=== PATIENT | male | born 1990 | race African-American/Black ===

== ENCOUNTER 2016-08-18 06:28 | Emergency (ER) | payer SELFPAY ==
[2016-08-18] MEDS ORDERED: HYDROmorphone 1 MG INJECTION IV ONE (06:34)
[2016-08-18] MEDS ORDERED: NS 1,000 ML IV ONE (06:34)
[2016-08-18] MEDS ORDERED: ONDANSETRON HCL 4 MG/2 ML VIAL IV ONE (06:34)
--- NOTE | 2016-08-18 06:37 | EDPRACDOC ---
- History of Present Illness HPI: FELL LAST NIGHT; WALKING DOG AND LOST BALANCE; FOOSH. PAIN TO RIGHT FOREARM , WRIST, AND HAND Location: Reports: Dorsal Mechanism: Reports: FOOSH Circumstances: Reports: Fall Tetanus Up To Date?: Yes Associated Signs and Symptoms: Reports: None <Jerardo Jones - Last Filed: 08/18/16 06:34> <AntonJuancarlos - Last Filed: 08/18/16 08:23> - General Information Stated Complaint: FALL: RT WRIST INJURY Time Seen by Provider: 08/18/16 06:34 Home Medications: Home Medications Oxycodone HCl/Acetaminophen [Percocet 5-325 mg Tablet] 1 each PO Q4 #20 tablet 08/18/16 Allergies/Adverse Reactions: Allergies Allergy/AdvReac Type Severity Reaction Status Date / Time pantoprazole sodium AdvReac See Verified 08/18/16 06:42 [From Protonix] Comments ED Past Medical History - History Reviewed Yes Nurses notes reviewed and agree except as marked - Patient Medical History Psychological History: Denies: Depression, Substance Use Disorder 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 Denies: Stroke, Cardiac Disorders - Social Medical History Smoking Status: Heavy tobacco smoker (5 or more cigarettes/day or daily pipe/ cigar) Social History: Denies: Substance Use Disorder <Jerardo Jones - Last Filed: 08/18/16 06:34> EDM Review of Systems - Review of Systems ROS Negative Except as Marked: Yes All systems reviewed and were negative except as marked <Jerardo Jones - Last Filed: 08/18/16 06:34> - Physical Exam Constitutional: No apparent distress Oriented to: Time, Person, Place Last recorded Vital Signs: Oxygen Pulse Oxygen Saturation O2 Device Oxygen Flow Rate Fraction of Inspired Oxygen ( FIO2) <Jerardo Jones - Last Filed: 08/18/16 06:34> - Physical Exam Last recorded Vital Signs: Last Vital Signs Temp 98.6 F 08/18/16 06:35 Pulse 51 L 08/18/16 07:52 Resp 16 08/18/16 07:52 BP 117/71 08/18/16 07:52 Pulse Ox 96 08/18/16 07:52 Oxygen Pulse Oxygen Saturation 96 O2 Device Room Air Oxygen Flow Rate Fraction of Inspired Oxygen ( FIO2) <AntonJuancarlos - Last Filed: 08/18/16 08:23> ED Wrist Problem Exam Wrist Symptoms: Swelling, Limited ROM, Moderate Tenderness Hand Symptoms: Swelling Forearm Symptoms: Swelling, Mild Tenderness Distal Function/Circulation: Normal, Capillary Refill. negative: Motor Deficit , Pulse Deficit, Sensory Deficit <Jerardo Jones - Last Filed: 08/18/16 06:34> <Jerardo Jones - Last Filed: 08/18/16 06:34> Decision Time to Discharge: 08:21 - Departure Yes I personally saw and evaluated the patient. 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
[2016-08-18 06:42] VITALS: TEMP 98.6; BMI 28.5
--- NOTE | 2016-08-18 07:55 | DIRPT ---
CLINICAL DATA: Right forearm, wrist and hand pain after falling on an outstretched arm while walking his dog last night and losing his balance. EXAM: RIGHT FOREARM - 2 VIEW COMPARISON: Wrist radiographs obtained at the same time. Right elbow radiographs dated 04/15/2009. FINDINGS: Again demonstrated are extensive degenerative changes involving the right elbow. There is a fracture through the radial aspect of the radial head involving the radio capitellar joint. There is a suggestion of corticated margins with joint space narrowing and irregularity. Mild elongation of the distal ulna relative to the distal radius. IMPRESSION: 1. 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 Correlation with the presence or absence of focal pain and tenderness at that location is recommended to exclude the possibility of an acute fracture. If this is a clinical concern, dedicated right elbow radiographs would be recommended. 2. 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 3. Positive ulnar variance. Electronically Signed By: Benny Jacob M.D. On: 08/18/2016 07:53
--- NOTE | 2016-08-18 07:55 | DIRPT ---
CLINICAL DATA: Pain following fall onto outstretched hand EXAM: RIGHT HAND - COMPLETE 3+ VIEW COMPARISON: September 07, 2010 FINDINGS: Frontal, oblique, and lateral views were obtained. There is no demonstrable fracture or dislocation. The joint spaces appear intact. No erosive change. Incidental note is made of a positive ulnar variant. IMPRESSION: Positive ulnar variant. No fracture or dislocation. No appreciable arthropathy. Electronically Signed By: Lonnie Ferrell III, M.D. On: 08/18/2016 07:52
--- NOTE | 2016-08-18 08:02 | DIRPT ---
CLINICAL DATA: Fall last night walking the dog, right forearm pain EXAM: RIGHT WRIST - COMPLETE 3+ VIEW COMPARISON: 10/05/2011 and 04/22/2010 FINDINGS: Four views of the right wrist submitted. No acute fracture. Minimal dorsal subluxation of distal ulna may be positional. Clinical correlation is necessary. IMPRESSION: No acute fracture. Minimal dorsal subluxation of distal ulna may be positional. Clinical correlation is necessary. Electronically Signed By: Román Avila M.D. On: 08/18/2016 08:00
[2016-08-18 08:45] VITALS: BP 125/82; PULSE 60
== END 2016-08-18 08:36 | disposition home or self-care (01) ==
LOC: ED 06:28
DX: S63.071A Subluxation of distal end of right ulna, initial encounter (principal); W01.0XXA Fall on same level from slipping, tripping and stumbling without subsequent striking against object, initial encounter; Y93.9 Activity, unspecified; S52.124 Nondisplaced fracture of head of right radius
CPT/HCPCS: 36415; 73090; 73110; 73130; 96361; 96374; 96375; 99284; J1170; J2405

== ENCOUNTER 2016-08-18 11:53 | Emergency (ER) | payer OTHER ==
[2016-08-18 11:54] VITALS: BMI 28.5
[2016-08-18 12:00] VITALS: TEMP 98.2
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
[2016-08-18] MEDS ORDERED: OXYCODONE HCL 5 MG TABLET PO ONE (13:19)
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
[2016-08-18 14:19] VITALS: BP 136/70; PULSE 72
== END 2016-08-18 14:20 | disposition home or self-care (01) ==
LOC: ED 11:53
DX: S16.1XXA Strain of muscle, fascia and tendon at neck level, initial encounter (principal); S29.019A Strain of muscle and tendon of unspecified wall of thorax, initial encounter; S39.012A Strain of muscle, fascia and tendon of lower back, initial encounter; V49.50XA Passenger injured in collision with unspecified motor vehicles in traffic accident, initial encounter; Y93.9 Activity, unspecified; Y92.410 Unspecified street and highway as the place of occurrence of the external cause
CPT/HCPCS: 72050; 72070; 72110; 99283; J3490